=== PATIENT | male | born 1995 | race Hispanic/Latino ===

== ENCOUNTER 2018-12-05 00:42 | Emergency (ER) | payer BC ==
[2018-12-05] MEDS ORDERED: IBUPROFEN 400 MG TAB ONE (01:38)
[2018-12-05] MEDS ORDERED: DEXAMETHASONE 4 MG/ML VIAL ONE (01:39)
--- NOTE | 2018-12-05 01:57 | EDPHYS ---
Physician Documentation [facility] Name: Zach An Age: 23 yrs Sex: Male : 1995 Arrival Date: 12/05/2018 Time: 00:44 Bed 13 Private MD: ED Physician Owen Lam HPI: 12/05 01:29 This 23 yrs old Male presents to ER via Ambulatory with complaints of Sore ps1 Throat. 01:29 patient with viral syndrome went to and told he had a virus. Now losing his voice. ps1 Has had a fever. S/O was sick and so was child with croup. Taking motrin. . Historical: - Allergies: 01:00 No Known Allergies; jb4 - Home Meds: 01:00 benzonatate oral oral [Active]; jb4 - PMHx: 01:00 None; jb4 - PSHx: 01:00 None; jb4 - Immunization history:: Adult Immunizations unknown, Flu vaccine is not up to date. - Social history:: Smoking status: Patient/guardian denies using tobacco, Patient/guardian denies using alcohol. - Ebola Screening: : No symptoms or risks identified at this time. ROS: 01:29 Cardiovascular: Negative for chest pain, palpitations, and edema, Respiratory: Negative ps1 for shortness of breath, cough, wheezing, and pleuritic chest pain, Abdomen/GI: Negative for abdominal pain, nausea, vomiting, diarrhea, and constipation, MS/Extremity: Negative for injury and deformity, Skin: Negative for injury, rash, and discoloration, Neuro: Negative for headache, weakness, numbness, tingling, and seizure. 01:29 Constitutional: Positive for body aches, chills, fatigue, fever. 01:29 ENT: Positive for hoarseness, sore throat. Exam: 01:29 Constitutional: This is a well developed, well nourished patient who is awake, alert, ps1 and in no acute distress. Head/Face: Normocephalic, atraumatic. Chest/axilla: Normal chest wall appearance and motion. Nontender with no deformity. No lesions are appreciated. Cardiovascular: Regular rate and rhythm. No gallops, murmurs, or rubs. Normal PMI, no JVD. No pulse deficits. Respiratory: Lungs have equal breath sounds bilaterally, clear to auscultation and percussion. No rales, rhonchi or wheezes noted. No increased work of breathing, no retractions or nasal flaring. Abdomen/GI: Soft, non-tender, with normal bowel sounds. No distension or tympany. No guarding or rebound. No evidence of tenderness throughout. Skin: Warm, dry with normal turgor. Normal color with no rashes, no lesions, and no evidence of cellulitis. MS/ Extremity: Pulses equal, no cyanosis. Neurovascular intact. Full, normal range of motion. Neuro: Awake and alert, GCS 15, oriented to person, place, time, and situation. Cranial nerves II-XII grossly intact. Sensory grossly intact. 01:29 ENT: Posterior pharynx: Tonsils: bilaterally enlarged, with exudate, erythema. Vital Signs: 01:00 BP 112 / 75; Pulse 73; Resp 16; Temp 98.9(O); Pulse Ox 100% on R/A; Weight 87.54 kg jb4 (R); Height 5 ft. 11 in. (180.34 cm) (R); Pain 6/10; 02:07 BP 122 / 71; Pulse 78; Resp 16; Pulse Ox 100% on R/A; jb4 01:00 Body Mass Index 26.92 (87.54 kg, 180.34 cm) 4 MDM: 01:38 Patient medically screened. ps1 12/05 01:16 Order name: Strep; Complete Time: 01:54 ps1 12/05 01:50 Order name: Throat Culture EDMS Administered Medications: 01:33 Drug: Decadron 10 mg Route: PO; [facility] 02:10 Follow up: Response: No adverse reaction; Marked relief of symptoms 4 01:33 Drug: Motrin 800 mg Route: PO; jb4 02:10 Follow up: Response: No adverse reaction; Pain is decreased [facility] Disposition: 12/05/18 01:56 Discharged to Home. Impression: Acute laryngitis. - Condition is Stable. - Discharge Instructions: Laryngitis. - Medication Reconciliation Form, Thank You Letter, Antibiotic Education, Prescription Opioid Use form. - Follow up: Private Physician; When: As needed; Reason: Re-evaluation by your physician. Follow up: Emergency Department; When: As needed; Reason: Trouble breathing. - Problem is new. - Symptoms are unchanged. Signatures: Dispatcher [employer] EDMS Stephen Pérez RN RN jb4 Owen Lam MD MD ps1 Corrections: (The following items were deleted from the chart) 02:11 01:56 12/05/2018 01:56 Discharged to Home. Impression: Acute laryngitis. Condition is jb4 Stable. Forms are Medication Reconciliation Form, Thank You Letter, Antibiotic Education, Prescription Opioid Use. Follow up: Private Physician; When: As needed; Reason: Re-evaluation by your physician. Follow up: Emergency Department; When: As needed; Reason: Trouble breathing. Problem is new. Symptoms are unchanged. ps1
--- NOTE | 2018-12-05 01:57 | ER ---
Nurse's Notes [facility] Name: Zach An Age: 23 yrs Sex: Male : 1995 Arrival Date: 12/05/2018 Time: 00:44 Bed 13 Private MD: Diagnosis: Acute laryngitis Presentation: 12/05 01:00 Presenting complaint: Patient states: I have had a soar throat since Thursday that has jb4 just gotten worse. 01:00 Transition of care: patient was not received from another setting of care. Onset of jb4 symptoms was November 29, 2018. Risk Assessment: Do you want to hurt yourself or someone else? Patient reports no desire to harm self or others. Initial Sepsis Screen: Does the patient meet any 2 criteria? No. Patient's initial sepsis screen is negative. Does the patient have a suspected source of infection? No. Patient's initial sepsis screen is negative. Care prior to arrival: None. 01:00 Method Of Arrival: Ambulatory jb4 01:00 Acuity: OUMAR 4 jb4 Triage Assessment: 01:00 General: Appears in no apparent distress. uncomfortable, Behavior is calm, cooperative, jb4 appropriate for age. Pain: Complains of pain in throat Pain does not radiate. Pain currently is 6 out of 10 on a pain scale. Quality of pain is described as burning, Pain began 11/29/18. EENT: Throat is clear is reddened. Neuro: Level of Consciousness is awake, alert, obeys commands, Oriented to person, place, time, situation. Cardiovascular: Patient's skin is warm and dry. Respiratory: Airway is patent Respiratory effort is even, unlabored, Respiratory pattern is regular, symmetrical, Pt is hoarse Breath sounds are clear bilaterally. GI: No signs and/or symptoms were reported involving the gastrointestinal system. : No signs and/or symptoms were reported regarding the genitourinary system. Derm: Skin is intact, Skin is pink, warm \T\ dry. Musculoskeletal: Circulation, motion, and sensation intact. Historical: - Allergies: 01:00 No Known Allergies; jb4 - Home Meds: 01:00 benzonatate oral oral [Active]; jb4 - PMHx: 01:00 None; jb4 - PSHx: 01:00 None; jb4 - Immunization history:: Adult Immunizations unknown, Flu vaccine is not up to date. - Social history:: Smoking status: Patient/guardian denies using tobacco, Patient/guardian denies using alcohol. - Ebola Screening: : No symptoms or risks identified at this time. Screenin:00 Abuse screen: Denies threats or abuse. Nutritional screening: No deficits noted. jb4 Tuberculosis screening: No symptoms or risk factors identified. Fall Risk None identified. Assessment: 01:00 General: see triage assessment.. Respiratory: Airway is patent Respiratory effort is jb4 even, unlabored, Respiratory pattern is regular, symmetrical, Breath sounds are clear bilaterally. 02:07 Reassessment: Patient appears in no apparent distress at this time. Patient and/or jb4 family updated on plan of care and expected duration. Pain level reassessed. Patient is alert, oriented x 3, equal unlabored respirations, skin warm/dry/pink. Pt speech has improved, no longer hoarse Patient states feeling better. Vital Signs: 01:00 BP 112 / 75; Pulse 73; Resp 16; Temp 98.9(O); Pulse Ox 100% on R/A; Weight 87.54 kg jb4 (R); Height 5 ft. 11 in. (180.34 cm) (R); Pain 6/10; 02:07 BP 122 / 71; Pulse 78; Resp 16; Pulse Ox 100% on R/A; jb4 01:00 Body Mass Index 26.92 (87.54 kg, 180.34 cm) jb4 ED Course: 00:44 Patient arrived in ED. ds1 01:00 Arm band placed on right wrist. jb4 01:00 Patient has correct armband on for positive identification. Bed in low position. Call jb4 light in reach. Side rails up X 1. Pulse ox on. NIBP on. 01:06 Stephen Pérez, DIOGO is Primary Nurse. jb4 01:10 Triage completed. jb4 01:15 Owen Lam MD is Attending Physician. ps1 01:33 Strep Sent. jb4 02:07 No provider procedures requiring assistance completed. Patient did not have IV access jb4 during this emergency room visit. Administered Medications: 01:33 Drug: Decadron 10 mg Route: PO; jb4 02:10 Follow up: Response: No adverse reaction; Marked relief of symptoms jb4 01:33 Drug: Motrin 800 mg Route: PO; jb4 02:10 Follow up: Response: No adverse reaction; Pain is decreased jb4 Outcome: 01:56 Discharge ordered by . ps1 02:07 Discharged to home ambulatory, with significant other. jb4 02:07 Condition: stable 02:07 Discharge instructions given to patient, significant other, Instructed on discharge instructions, follow up and referral plans. Demonstrated understanding of instructions, follow-up care. 02:11 Patient left the ED. jb4 Signatures: Radha Uriarte ds1 Stephen Pérez RN RN jb4 Owen Lam MD MD ps1 Corrections: (The following items were deleted from the chart) 02:07 01:00 Respiratory: Airway is patent Respiratory effort is even, unlabored, Respiratory jb4 pattern is regular, symmetrical, jb4 02:08 02:07 Reassessment: Patient appears in no apparent distress at this time. Patient jb4 and/or family updated on plan of care and expected duration. Pain level reassessed. Patient is alert, oriented x 3, equal unlabored respirations, skin warm/dry/pink. Patient states feeling better. jb4
== END 2018-12-05 02:11 | disposition home or self-care (01) ==
LOC: ER 00:42
DX: J04.0 Acute laryngitis (principal)
CPT/HCPCS: 87070; 87081; 99283